=== PATIENT | female | born 1985 | race Caucasian/White ===

== ENCOUNTER → 2021-01-31 | Outpatient (CLI) | payer OTHER, SELFPAY ==
--- NOTE | 2021-01-31 15:40 | EMB_PTH ---
PATIENT: TIFFANY EASON LOC: [facility] U#:[id number] AGE/SX: 35/F ROOM: RE01/31/[address]: Dr. Barron Becerril MD : 1985 BED: DIS: 01/31/2021 SPEC #: [id number] RECD: 02/01/21 10:42 STATUS: FRANCINE REHunter #: [id number] SKYE: 01/31/21 15:[address]: Barron Becerril DEPT: SURGICAL PATHOLOGY RECD BY: Russ Ziegler Tissues: Endometrium, NOS Procedures: Surgery Specimen Level IV HEADER OPERATION: Endometrial biopsy PRE-OP DIAGNOSIS: Abnormal uterine bleeding TISSUE SUBMITTED: Endometrial biopsy MICROSCOPIC DIAGNOSIS Endometrium, biopsy: Proliferative endometrium with focal glandular breakdown. AM:jose 02/02/2021 MICROSCOPIC DESCRIPTION Slides are reviewed. GROSS DESCRIPTION Received in fixative is one container labeled with the patient's name and designated EM biopsy. The specimen consists of multiple irregular fragments of maria-pink soft tissue mixed with hemorrhagic soft tissue that in aggregate measure 2 x 1 x 0.2 cm. The specimen is totally submitted in one cassette. / SJ:jose 02/01/21 TC:5 CPT: 84788
[2021-02-03 20:55] LABS: HPV Reflexed? NOT INDICATED
== END | disposition home or self-care (01) ==
LOC: LABSPEC 02-01 09:58
PROVIDERS: Visit Provider Obstetrics & Gynecology
DX: N93.9 Abnormal uterine and vaginal bleeding, unspecified (principal)
CPT/HCPCS: 88175; 88305; G0145

== ENCOUNTER 2021-02-20 08:05 | Day surgery (SDC) | payer OTHER, SELFPAY ==
[2021-02-15 17:36] LABS: Hematocrit 38.6 % (37-47); Hemoglobin 12.8 g/dL (12.0-15.0); Mean Corp Hgb Conc 33.2 g/dL (32-36); Mean Corpuscular Hgb 31.3 pg (27.0-32.0); Mean Corpuscular Volume 94.4 fL (81-99); Mean Platelet Vol. 9.9 fl (6.2-12.0); Platelet Count 314 K/mm3 (150-450); RBC Distribution Width CV 12.1 % (11.6-14.6); RBC Distribution Width SD 42.5 fl (35.1-43.9); Red Blood Count 4.09 M/mm3 (4.2-5.4)
[2021-02-15 17:45] LABS: Partial Thromboplast Time 25.8 Seconds (24.1-36.2)
[2021-02-15 18:26] LABS: hCG Titer Quant., Serum < 1 mIU/mL (1-3)
--- NOTE | 2021-02-19 20:45 | HP.PCM_ITS ---
History and Physical Date of Admission: 02/20/21 Surgical History and Physical Savannah De, a 35 year old female 2 0 0 0 2, presents for HTA, Hysteroscopy, D and C and L/S Bryn Salpingectomy on February 20, 2021 at 9:45. -- Menorrhagia, Dysmenorrhea, Desires Permanent Sterilization -- Heavy menses which began approx 6-12mos ago. Savannah claims it started suddenly and has been present intermittently for 6-12mos. It occurs intermittantly. Savannah characterizes the quality cramping. Severity is moderate. Associated signs and symptoms are Spotting 5-7days prior to menses. MEDICATIONS HISTORY: Patient is also takin. Prilosec OTC 20 mg Tablet, Delayed Release (E.C.), 1 qd ALLERGIES: NKDA Infections - Chicken pox childhood Illnesses - GERD Accidents - None Hospitalizations - Childbirth and see surgery Review of Systems: GENERAL - Denies fever, or chills SKIN - Denies skin changes EYES - Denies visual changes EARS - Denies difficulty hearing NOSE - Denies nasal congestion or bleeding MOUTH - Denies sore throat or difficulty swallowing NECK - Denies pain or swelling RESPIRATORY - Denies shortness of breath or wheezing CARDIOVASCULAR - Denies palpitations or chest pain GASTROINTESTINAL - Denies nausea, vomiting, diarrhea, constipation GENITOURINARY - Denies dysuria, frequency of urination, incontinence of urine MUSCULOSKELETAL - Denies joint or muscle pain NEUROLOGICAL - Denies localized numbness or weakness PSYCHIATRIC - Denies depression or anxiety ENDOCRINE - Denies heat or cold intolerance, weight loss or gain HEMATO-IMMUNOLOGIC - Denies excesive bleeding with cuts SOCIAL HISTORY: Alcohol Use - drinks occasionally Smoking - Never Diet - balanced Diet Lifestyle - moderate stress lifestyle and Exercise - very active and 1/2hr Elyptical daily Seat Belt Use - always Employer - [employer] 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 MENSTRUAL HISTORY: LMP Known?- YesAmount/Duration - 3-4 DAYS, Regularity - Regular, Frequency - monthly days, LMP - 01/24/21, Age Onset Menarche - 11 PAST PREGNANCIES: Total Pregnancies - 2; Full Term Pregnancies - 2; Premature - 0; Abortions, Induced - 0; Abortions, Spontaneous - 0; Ectopics - 0; Multiple Births - 0; Living Children - 2 SURGICAL HISTORY: 1. T and A CHILD PHYSICAL EXAM BP- 104/72 Sitting, Right arm, regular cuff Weight- 152.78179 lbs Height- 63.50 inch BMI:26.63 CONSTITUTIONAL - NAD, well nourished, and well developed SKIN - No rash, lesions, or ulcers HEENT - Normocephalic, PERRLA, EOMI NECK - No nodes, no nuchal rigidity and thyroid normal size and texture LYMPH NODES - Palpation of lymph nodes in neck and groins within normal limits LUNGS - CTA x2 without wheezes, crackles or rales CARDIAC - Regular rate and rhythm without rubs, murmurs, or gallops ABDOMEN - Without hepatosplenomegaly, distention, masses, rebound, or guarding; normal bowel sounds; no hernias EXTREMITIES - No edema or calf tenderness NEUROLOGICAL - Cranial nerves II-XII grossly intact PSYCHIATRIC - A and O to time, place, person, mood and affect External Genitial Vagina - non-tender without lesions Urethra/Urethral Meatus - non-tender Bladder - non-tender Vagina - vaginal jamil are pink and moist without loss of rugae and no evidence of atropy Cervix - without cervical motion tenderness and has normal size and features without evident lesions Uterus - multiparous size 6 cm & wt 75-125 g Adnexa - clear without massess or tenderness ASSESSMENT/PLAN: Premenopausal Menorrhagia; Desires Permanent Sterilization Discussed treatment options and pt declines OCPs. Discussed endometrial ablation at length with RBAs and all questions answered. Also desires permanent sterilization. Pelvic u/s OK and EMBx ok.
[2021-02-20] VITALS (8 sets, daily range): BP systolic 99–125; BP diastolic 56–80; PULSE 50–81; RESP 16–18; TEMP 36.1–37.3; O2SAT 100; BMI 26.6
[2021-02-20 08:30] LABS: Internal QC Validated? YES +Cl - CLEAR BKGD; Pregnancy, Urine Negative Negative
[2021-02-20] MEDS: Lactated Ringers 1,000 ML 100 ML IV ×2 (08:38→10:30)
--- NOTE | 2021-02-20 09:11 | PCM.OPRPT ---
Problems Associated Problem List Diagnoses (1) Menorrhagia: (2) Encounter for female sterilization procedure: Report of Operation Date of Procedure: 02/20/21 Pre-Operative Diagnosis: Menorrhagia, Desires Permanent Sterilization Post-Operative Diagnosis: Menorrhagia, Desires Permanent Sterilization Surgery/Procedure Performed:: Bilateral Laparoscopic Salpingectomy, Diagnostic Hysteroscopy, Dilation and Curettage, Hydrothermal Ablation Description of Surgical Findings:: Normal pelvis. 8 cm endometrial cavity without polyps or fibroids present. Surgeon: Barron Becerril digital camera technician: Singh Gilman Type of Anesthesia: General (Endotracheal) Anesthesiologist: Monico Elder Specimen's removed: Bilateral fallopian tubes, endometrial curettings Estimated Blood Loss (mL): Minimal Fluids Replaced: Crystalloid Description of Procedure: Surgeon: Barron Becerril MD, FACOG Indication: This is a 35 year old patient who has been having problems with extremely heavy menses. She also desires permanent sterilization. Conservative measures have not been helpful. Endometrial sampling was benign and pelvic ultrasound showed that ablation may be helpful. Pt has been counseled regarding the risks, benefits and alternatives of this procedure and all questions answered. She understands that only about half of patients will have amenorrhea after this procedure. She also understands the permanent nature of her tubal as well as the failure rate of 1-2%. All questions were answered we consider the patient well-informed. Procedure: Patient taken to the operating room where after induction of general anesthesia the patient was prepped and draped in the usual sterile fashion. Bladder was drained of urine with a catheter. Anterior cervix grasped and Conn cannula was placed; attention was turned toward the laparoscopic portion of the procedure. Approximately 30 cc of half percent ropivacaine was injected subumbilically suprapubically and midway between. A 5 mm bladeless trocar was placed subumbilically and intraperitoneal placement confirmed. After CO2 insufflation was complete, a 5 mm bladeless trocar was introduced suprapubically. The above findings were noted. A 5mm port was then placed midway between these 2 ports for tubal manipulation. Each fallopian tube was identified to its fimbriated end and an Enseal device was used to divide the mesosalpinx to the uterus. The peritoneal cavity and upper abdomen were examined and noted to be normal. Photographs were taken. Laparoscopic instruments with as much CO2 gas as possible were removed and incisions were closed with interrupted 4-0 Monocryl suture. Steri-Strips placed across the incision. Attention was turned toward the ablation portion of the procedure and the cervix was dilated to about 17 Greenlandic size. Hysteroscopic hydrothermal ablation (HTA) unit was place in the cervix and the above findings were noted. HTA unit was removed and the uterus was gently curetted removing all contents. An HTA ablation cycle was then carried out at about 90 degrees Centigrade for 10 minutes with virtually no fluid loss during the procedure. After an appropriate cool down the HTA unit was removed with minimal bleeding noted. Patient tolerated procedure well was taken to recovery room in satisfactory condition sponge instrument and needle counts were all reportedly correct. Estimated blood loss for the case was minimal. Specimens to pathology were endometrial curettings and bilateral distal fallopian tubes. Grafts/Implants Used: None Complications None Admit VTE Documentation VTE Present on Admission: Yes VTE Mechan Device Prophylaxis: SCD's
--- NOTE | 2021-02-20 09:21 | DCINST_ITS ---
Discharge Instructions Diet Discharge Diet: No restrictions (Increase fluid intake for the next 48 hours.) and - (Increase fluid intake for 48 hours.) Activity Discharge Activity: Return to Normal Activity, May not drive while taking narcotic pain medications., May Shower and May Take a Tub Bath May resume sexual activity in: 2 weeks Lifting Restrictions: Less than 25 pounds for 2 weeks Additional Activity Instructions:: Ambulate often the next week after surgery. Nothing in the vagina for 5 days. Dressing / Incision Call your doctor if your incision/area has: Continuous Slow Oozing, Sudden Increased Bleeding, Increased Pain/ Swelling, Increased Redness and Foul Smelling Discharge Call your doctor if you observe: Fever of 101 or Higher, Inability to urinate, Inability to have a bowel movement and Using more than one pad per hour Remove Dressing in: leave in place till F/U Cleanse incision/area with: Soap & Water Follow Up Care Please Follow Up With: Barron Becerril MD When: Call [phone] for an appointment in 3 to 4 weeks Test Results: Test results from this visit will be discussed in further detail at your follow-up appointment, if applicable. Discharge Plan Admission Primary Reason for Your Visit: Tubal and Endometrial Ablation Attending Provider: Barron Becerril Primary Care Provider: Zayda Martin Discharge Orders/Prescriptions Prescriptions: New oxycodone 5 mg capsule 5 mg PO Q6H PRN (Reason: pain) 7 Days Qty: 10 RF: 0 Continued omeprazole magnesium [Prilosec OTC] 20 mg Tablet,Delayed Release (Dr/Ec) 20 mg PO DAILY RF: 0 Other Ambulatory Orders: COVID 19 AG RAPID (RN COLLECT) (Routine) Timeframe: [id number] Facility: [facility] - Location: Laboratory Ordered By: Dr. Jameson Becerril Referrals / Follow Up: Zayda Martin PA [Primary Care Provider] - Disposition Disposition (needs filled in before D/C Order can be placed): Home, self care
--- NOTE | 2021-02-20 09:40 | FALS_PTH ---
PATIENT: TIFFANY EASON LOC: [facility] [place] U[place][id number] AGE/SX: 35/F ROOM: RE02/20/[address]: Dr. Barron Becerril MD : 1985 BED: DIS: 02/20/2021 SPEC #: [id number] RECD: 02/20/21 13:26 STATUS: FRANCINE REQ #: [id number] SKYE: 02/20/21 09:[address]: Barron Becerril DEPT: SURGICAL PATHOLOGY RECD BY: Cassie Martinez ENTERED: 02/21/21 08:30 SP TYPE: FALL TUBES OTHR DR: CHIKA Mcdonald Tissues: A - Fallopian tube B - Endometrium, NOS Procedures: Surgery Specimen Level II Surgery Specimen Level IV HEADER OPERATION: Laparoscopic bilateral salpingectomy, hysteroscopy dilation PRE-OP DIAGNOSIS: Sterilization, menorrhagia TISSUE SUBMITTED: A ? Bilateral fallopian tubes, B ? Endometrial curettings MICROSCOPIC DIAGNOSIS A. Bilateral fallopian tubes, salpingectomy: Bilateral fallopian tubes, no pathologic diagnosis. B. Endometrial curettings: Secretory endometrium with glandular and stromal breakdown. ERENDIRA:jose 02/22/2021 COMMENT Please make reference to previous specimen ([id number]) endometrium, biopsy with diagnosis of ?proliferative endometrium with focal glandular breakdown.? MICROSCOPIC DESCRIPTION Slides are reviewed. GROSS DESCRIPTION A - Received in fixative is one container labeled with the patient's name and designated bilateral fallopian tubes. The specimen consists of bilateral fallopian tubes including fimbrial ends measuring 7 cm in length and 0.5 cm in diameter and 6.5 cm in length and 0.5 cm in diameter. The fallopian tubes are not identified as right or left. Sections reveal unremarkable cut surfaces. Chief Operator Hydroformer sections are submitted in two cassettes with each cassette containing one fallopian tube. B - Received in fixative is one container labeled with the patient's name and designated endometrial curettings. The specimen consists of multiple fragments of hemorrhagic soft tissue that in aggregate measure 5 x 3 x 0.3 cm. The entire specimen is submitted in two cassettes. / ERENDIRA:jose 02/21/21 TC:5 CPT: 65256 x2, 96097
[2021-02-20] MEDS: Lubricating Jelly 60 GM Tube 30 GM TOPICAL (09:50)
[2021-02-20] MEDS: Ropivacaine 0.5% 30 ML Vial (09:52)
== END 2021-02-20 13:58 | disposition home or self-care (01) ==
LOC: SDC 08:12 → AC 08:15
PROVIDERS: Anesthesiology; Referring Provider Obstetrics & Gynecology; Visit Provider Obstetrics & Gynecology
PROC: (CPT 58661; principal; 2021-02-20 09:25)
DX: N92.4 Excessive bleeding in the premenopausal period (principal); Z30.2 Encounter for sterilization; K21.9 Gastro-esophageal reflux disease without esophagitis
CPT/HCPCS: 00952; 58661; 36415; 81025; 84702; 85027; 85610; 85730; 86850; 86900; 86901; 88302; 88305; J7120; C1760; J2405